=== PATIENT | female | born 1950 | race Caucasian/White ===

== ENCOUNTER 2019-04-09 17:07 | Emergency (ER) | payer BC, MEDICARE, SELFPAY ==
[2019-04-09 17:32] VITALS: BP 124/69; PULSE 75; RESP 16; TEMP 36.9; O2SAT 99; BMI 24.9
--- NOTE | 2019-04-09 17:51 | DI.CT.S_ITS ---
PROCEDURE: CT CERVICAL SPINE WO CON INDICATIONS: fall off mer TECHNIQUE: Noncontrast 3 mm thick sections acquired from the skull base to the T4 level. Sagittal and coronal reformats were then constructed. For radiation dose reduction, the following was used: automated exposure control, adjustment of mA and/or kV according to patient size. COMPARISON: None. FINDINGS: Image quality: Excellent. Bones: No fractures or dislocations. Multilevel cervical facet arthropathy. Bilateral bony foraminal narrowing at C4-C5 and C5-C6. Visualized superior ribs are intact. Soft tissues: Prevertebral soft tissues are normal in thickness. No paravertebral hematomas. No apical pneumothoraces. IMPRESSION: 1. No evidence acute cervical fracture or dislocation. 2. Cervical spondylosis. Dictated by: Kenyon Zafar M.D. on 04/09/2019 at 18:38 Approved by: Kenyon Zafar M.D. on 04/09/2019 at 18:43
--- NOTE | 2019-04-09 17:51 | DI.CT.S_ITS ---
PROCEDURE: CT CHEST ABD PEL W CON INDICATIONS: fall off mer, back pain TECHNIQUE: After the administration of intravenous contrast, 5 mm thick sections acquired from the lung apices to the symphysis. 2.5 mm thick coronal and sagittal reformats were acquired. Additional 7 mm thick coronal maximum intensity projection (MIP) reformats acquired through the lungs. Optional 10-minute delayed imaging may be performed from the kidneys to the bladder. For radiation dose reduction, the following was used: automated exposure control, adjustment of mA and/or kV according to patient size. COMPARISON: None. FINDINGS: Image quality: Excellent. CHEST: Lungs: No pulmonary contusions or lacerations. No acute airspace opacities. No pneumothorax or hemothorax. Central and peripheral airways appear patent and normal in caliber. Mediastinum: No mediastinal hematomas. Heart size is normal. No pericardial effusion. Thoracic aorta and pulmonary arteries demonstrate normal size and enhancement. No mediastinal or hilar adenopathy. Esophagus is normal in caliber. No hiatal hernia. Chest wall: No rib fractures. No subcutaneous emphysema. No axillary or supraclavicular adenopathy. Thyroid gland is unremarkable. ABDOMEN: Solid organs: Liver is normal in size and enhancement, without lacerations. Gallbladder is unremarkable. Biliary system is non-dilated. Pancreas enhances normally, without transection. Spleen is normal in size and enhancement, without lacerations. No adrenal hematomas. Both kidneys enhance normally, without hydronephrosis or lacerations. Peritoneum and bowel: No free fluid or air. Unenhanced bowel loops demonstrate normal wall thickness and caliber. Nodes and vessels: No retroperitoneal or mesenteric adenopathy. Aorta and inferior vena cava are normal in size and enhancement. Miscellaneous: No ventral hernias. PELVIS: Genitourinary: Bladder wall thickness is normal. Miscellaneous: No inguinal hernias or adenopathy. Bones: Mild acute superior endplate compression fractures of L1 and L2. Mild chronic compression fractures of T4-T12. IMPRESSION: 1. Mild acute superior endplate compression fractures of L1 and L2. 2. Mild old compression fractures of T4 [id number] vertebral bodies. 3. No other significant sequelae of acute trauma involving the chest, abdomen, and pelvis. Dictated by: Kenyon Zafar M.D. on 04/09/2019 at 18:44 Approved by: Kenyon Zafar M.D. on 04/09/2019 at 18:51
--- NOTE | 2019-04-09 17:51 | DI.CT.S_ITS ---
PROCEDURE: CT HEAD/BRAIN WO CON INDICATIONS: fall off mer TECHNIQUE: Noncontrast 4.5 mm thick angled axial sections acquired from the foramen magnum to the vertex, with coronal and sagittal reformats. For radiation dose reduction, the following was used: automated exposure control, adjustment of mA and/or kV according to patient size. COMPARISON: None. FINDINGS: Image quality: Excellent. CSF spaces: Basal cisterns are patent. No extra-axial fluid collections. Ventricles are normal in size and shape. Brain: No midline shift. No intracranial masses or hemorrhage. Moore-white matter interface is normal. Skull and face: Calvarium and visualized facial bones are intact, without suspicious lesions. Sinuses: Visualized sinuses and mastoids are clear. IMPRESSION: Negative for acute stroke, hemorrhage, or mass. No evidence of significant intracranial sequelae of acute trauma. Dictated by: Kenyon Zafar M.D. on 04/09/2019 at 18:36 Approved by: Kenyon Zafar M.D. on 04/09/2019 at 18:37
[2019-04-09 18:06] LABS: Add Manual Diff / Slide Review NO; Basophils Absolute Auto 0 /uL (0-100); Basophils Percent Auto 0.4 % (0-2); Eosinophils Absolute Auto 0 /uL (0-450); Eosinophils Percent Auto 0.2 % (2-4); Hematocrit 41.5 % (36-46); Hemoglobin 14.2 g/dL (12.0-16.0); Lymphocytes Absolute Auto 900 /uL (1100-4500); Lymphocytes Percent Auto 9.5 % (25-40); Mean Corpuscular HGB Conc 34.3 % (30-36); Mean Corpuscular Hemoglobin 30.3 PG (26-34); Mean Corpuscular Volume 88.3 fL (80-100); Monocytes Absolute Auto 600 /uL (0-900); Monocytes Percent Auto 5.7 % (3-14); Neutrophils Absolute Auto 8400 /uL (1500-7000); Neutrophils Percent Auto 84.2 % (50-75); Platelet Count 235 X10^3/uL (150-400); Red Blood Cell Count 4.69 X10^6/uL (4.0-5.2); Red Cell Distribution Width 13.2 % (11.6-14.8)
[2019-04-09 18:17] LABS: Alanine Aminotransferase 34 IU/L (<35); Albumin 4.2 g/dL (3.5-5.0); Albumin Globulin Ratio 1.4 (1.0-2.8); Alkaline Phosphatase 79 U/L (38-126); Aspartate Aminotransferase 51 IU/L (14-36); BUN Creatinine Ratio 26.3 (6-22); Bilirubin Total 0.4 mg/dL (0.2-1.3); Blood Urea Nitrogen 21 mg/dL (7-17); Calcium 9.2 mg/dL (8.4-10.2); Carbon Dioxide 27 mmol/L (22-32); Chloride 102 mmol/L (98-107); Estimated Glomerular Filt Rate > 60.0 mL/min (>60); Globulin 3.1 g/dL (1.7-4.1); Glucose 124 mg/dL (80-110); HEMOLYSIS 18 (0-50); Lipase 283 U/L (23-300); Potassium 3.9 mmol/L (3.4-5.1); Sodium 136 mmol/L (137-145); Total Protein 7.3 g/dL (6.3-8.2)
--- NOTE | 2019-04-09 18:42 | ED.GENADULT ---
HPI - General Adult General Chief complaint: Trauma Stated complaint: fall to her back from about 6ft Time Seen by Provider: 04/09/19 17:43 Source: patient Mode of arrival: Wheelchair Limitations: no limitations History of Present Illness HPI narrative: Patient is a 68-year-old female. Otherwise healthy here for evaluation of injuries that she sustained several hours prior to arrival here in the emergency department. Patient states she was walking [place] trail [place]. She was walking her dog. She states there was a 6 ft wall between her and the beach/water. She states that her dog got too close to the edge and fell off of the wall. She states that because she was holding on to the lesion pulled her off. She states that she fell landing on her back. She stated that she did not hit her head. There was no loss of consciousness. Stated that she felt sick immediately afterwards and felt like she was going to throw up. Had to lay on the ground for a period of time. She states the dog was not injured. She was able to locate her phone after a period of time and contacted her who came and found her and helped her up. Had a very difficult time walking afterwards. Took some Aleve which did not improvement in her symptoms so came into the emergency department for evaluation. This is a modified trauma given the mechanism Related Data Previous Rx's Medication Instructions Recorded hydrocodone-acetaminophen [[place]] 1 tab PO Q4-6H PRN #10 tab 04/09/19 Review of Systems Constitutional Constitutional: Denies frequent falls and Denies headache(s) Eyes Eyes: Denies diplopia ENT Ears, Nose, Mouth, and Throat: Denies vertigo, Denies dizziness, Denies headache(s) and Denies disequilibrium Cardiovascular Cardiovascular: Denies chest pain, Denies palpitations and Denies dyspnea Respiratory Respiratory: Denies dyspnea Gastrointestinal Gastrointestinal: Denies abdominal pain, Reports nausea and Denies vomiting Genitourinary Genitourinary: Denies dysuria Musculoskeletal Musculoskeletal: Denies tingling Comments: Lower back pain, left hand pain Integumentary/Breasts Comments: Bruising to the tip of her left ring and middle fingers Neurologic Neurologic: Denies vertigo, Denies dizziness, Denies frequent falls, Denies headache(s), Denies tingling, Denies paresthesias and Denies disequilibrium Endocrine Endocrine: Denies palpitations Hematologic/Lymphatic Hematologic/Lymphatic: Denies easy bleeding and Denies easy bruising Patient History Medical History Healthy adult (Acute) Social History marital status: lives independently: Yes Exam Initial Vital Signs Initial Vital Signs: Vital Signs Temperature 98.5 F 04/09/19 17:32 Pulse Rate 75 04/09/19 17:32 Respiratory Rate 16 04/09/19 17:32 Blood Pressure 124/69 04/09/19 17:32 Pulse Oximetry 99 04/09/19 17:32 Const General: cooperative, comfortable and well developed Orientation: alert, awake and oriented x3 HENMT Head: normal to inspection and normocephalic Nose: external nose normal Face and sinus: normal facial exam Chest Chest: normal inspection of the chest, No crepitus and No tenderness Resp Effort & Inspection: normal respiratory effort Auscultation: clear to auscultation bilaterally Cardio Rate: regular rate Rhythm: regular rhythm GI Inspection: non-distended Palpation: soft, No firm and No tender Back/Spine/Pelvis Cervical Spine: collar present and No cervical spinal tenderness Thoracic/Lumbar Spine: paraspinal tenderness (Upper lumbar) and No thoracic spinal tenderness Skin Other: Patient with bruising to the very tip of her left ring and middle finger. The distal portion of the nail with her left middle finger is bent backwards. There is no active bleeding. Neuro General: alert, awake and oriented x3 Cognition: normal cognition Speech: speech normal Motor: muscle tone normal throughout Sensory Exam: no sensory deficits noted Extrem General: normal to inspection and capillary refill normal Other: Shoulders elbows wrists hips knees ankles all unremarkable Psych Appearance: grossly normal and well kempt Scores GCS L[place]un coma scale eye opening: Spontaneous Mobile coma scale verbal response: Orientated [place] coma scale motor response: Obey commands [place] coma scale total score: 15 Nexus Score for C-Spine Focal Neurologic deficit present: No Midline spinal tenderness present: No Altered level of conciousness present: No Intoxication present: No Distracting Injury Present: No Nexus Criteria for C-spine: 0 Course Orders Ordered: ED Orders 04/09/19 17:51 CT cervical spine wo con Stat CT chest abd pel w con Stat CT head/brain wo con Stat 04/09/19 17:57 Complete Blood Count AUTO DIFF Stat Comprehensive Metabolic Panel Stat Lipase Stat Discontinued Medications Hydrocodone Bitart/Acetaminophen ([place] 5/325) 1 tab PO NOW ONE Stop: 04/09/19 19:43 Last Admin: 04/09/19 19:48 Dose: 1 tab Documented by: KIKE Hydrocodone Bitart/Acetaminophen (Vicodin Prepack) 1 bottle MISC SEEINSTR ONE Stop: 04/09/19 19:43 Last Admin: 04/09/19 19:48 Dose: 1 bottle Documented by: KIKE Vital Signs Vital signs: Vital Signs - 8 hr 04/09/19 17:32 04/09/19 19:35 Temperature 98.5 F Pulse Rate 75 73 Respiratory Rate 16 Blood Pressure 124/69 Blood Pressure [Left Arm] 114/63 Pulse Oximetry 99 98 Medical Decision Making Lab Data Lab results reviewed: Yes I reviewed the patient's lab results. Result diagrams: 04/09/19 17:57 04/09/19 17:57 Labs: Lab Results 04/09/19 04/09/19 Range/Units 17:57 17:57 WBC 10.0 (4.5-11.0) X10^3/uL RBC 4.69 (4.0-5.2) X10^6/uL Hgb 14.2 (12.0-16.0) g/dL Hct 41.5 (36-46) % MCV 88.3 (80-100) fL MCH 30.3 (26-34) PG MCHC 34.3 (30-36) % RDW 13.2 (11.6-14.8) % Plt Count 235 (150-400) X10^3/uL Neut % (Auto) 84.2 H (50-75) % Lymph % (Auto) 9.5 L (25-40) % Forrest % (Auto) 5.7 (3-14) % Eos % (Auto) 0.2 L (2-4) % Baso % (Auto) 0.4 (0-2) % Neut # (Auto) 8400 H (9058-8078) /uL Lymph # (Auto) 900 L (0964-8514) /uL Forrest # (Auto) 600 (0-900) /uL Eos # (Auto) 0 (0-450) /uL Baso # (Auto) 0 (0-100) /uL Sodium 136 L (137-145) mmol/L Potassium 3.9 (3.4-5.1) mmol/L Chloride 102 (98-107) mmol/L Carbon Dioxide 27 (22-32) mmol/L BUN 21 H (7-17) mg/dL Creatinine 0.80 (0.52-1.04) mg/dL Estimated GFR > 60.0 (>60) mL/min BUN/Creatinine Ratio 26.3 H (6-22) Glucose 124 H (80-110) mg/dL Calcium 9.2 (8.4-10.2) mg/dL Total Bilirubin 0.4 (0.2-1.3) mg/dL AST 51 H (14-36) IU/L ALT 34 (<35) IU/L Alkaline Phosphatase 79 (38-126) U/L Total Protein 7.3 (6.3-8.2) g/dL Albumin 4.2 (3.5-5.0) g/dL Globulin 3.1 (1.7-4.1) g/dL Albumin/Globulin Ratio 1.4 (1.0-2.8) Lipase 283 (23-300) U/L Imaging Data CT scan - head: Radiologist's impression: [place] [address] CT Scan Report Signed Patient: Rayne Capps TMR#: [id number] : 3Acct:[id number] Age/Sex: 68 / FDate of Service: 04/09/19 Loc: ED Accession Number: [id number] Procedure: CT head/brain wo con Ordering Provider: Nakia Skelton D.O. PROCEDURE: CT HEAD/BRAIN WO CON INDICATIONS: fall off mer TECHNIQUE: Noncontrast 4.5 mm thick angled axial sections acquired from the foramen magnum to the vertex, with coronal and sagittal reformats. For radiation dose reduction, the following was used: automated exposure control, adjustment of mA and/or kV according to patient size. COMPARISON: None. FINDINGS: Image quality: Excellent. CSF spaces: Basal cisterns are patent. No extra-axial fluid collections. Ventricles are normal in size and shape. Brain: No midline shift. No intracranial masses or hemorrhage. Moore-white matter interface is normal. Skull and face: Calvarium and visualized facial bones are intact, without suspicious lesions. Sinuses: Visualized sinuses and mastoids are clear. IMPRESSION: Negative for acute stroke, hemorrhage, or mass. No evidence of significant intracranial sequelae of acute trauma. Dictated by: Kenyon Zafar M.D. on 04/09/2019 at 18:36 Approved by: Kenyon Zafar M.D. on 04/09/2019 at 18:37 CT cervical spine: Radiologist's impression: [place] [address] CT Scan Report Signed Patient: Rayne Capps TMR#: [id number] : 1950cct:[id number] Age/Sex: 68 / FDate of Service: 04/09/19 Loc: ED Accession Number: [id number] Procedure: CT cervical spine wo con Ordering Provider: Nakia Skelton D.O. PROCEDURE: CT CERVICAL SPINE WO CON INDICATIONS: fall off mer TECHNIQUE: Noncontrast 3 mm thick sections acquired from the skull base to the T4 level. Sagittal and coronal reformats were then constructed. For radiation dose reduction, the following was used: automated exposure control, adjustment of mA and/or kV according to patient size. COMPARISON: None. FINDINGS: Image quality: Excellent. Bones: No fractures or dislocations. Multilevel cervical facet arthropathy. Bilateral bony foraminal narrowing at C4-C5 and C5-C6. Visualized superior ribs are intact. Soft tissues: Prevertebral soft tissues are normal in thickness. No paravertebral hematomas. No apical pneumothoraces. IMPRESSION: 1. No evidence acute cervical fracture or dislocation. 2. Cervical spondylosis. Dictated by: Kenyon Zafar M.D. on 04/09/2019 at 18:38 Approved by: Kenyon Zafar M.D. on 04/09/2019 at 18:43 CT chest abd/pelvis: Radiologist's impression: [place] [id number] CT Scan Report Signed Patient: Rayne Capps TMR#: [id number] : 1950cct:[id number] Age/Sex: 68 / FDate of Service: 04/09/19 Loc: ED Accession Number: [id number] Procedure: CT chest abd pel w con Ordering Provider: Nakia Skelton D.O. PROCEDURE: CT CHEST ABD PEL W CON INDICATIONS: fall off mer, back pain TECHNIQUE: After the administration of intravenous contrast, 5 mm thick sections acquired from the lung apices to the symphysis. 2.5 mm thick coronal and sagittal reformats were acquired. Additional 7 mm thick coronal maximum intensity projection (MIP) reformats acquired through the lungs. Optional 10-minute delayed imaging may be performed from the kidneys to the bladder. For radiation dose reduction, the following was used: automated exposure control, adjustment of mA and/or kV according to patient size. COMPARISON: None. FINDINGS: Image quality: Excellent. CHEST: Lungs: No pulmonary contusions or lacerations. No acute airspace opacities. No pneumothorax or hemothorax. Central and peripheral airways appear patent and normal in caliber. Mediastinum: No mediastinal hematomas. Heart size is normal. No pericardial effusion. Thoracic aorta and pulmonary arteries demonstrate normal size and enhancement. No mediastinal or hilar adenopathy. Esophagus is normal in caliber. No hiatal hernia. Chest wall: No rib fractures. No subcutaneous emphysema. No axillary or supraclavicular adenopathy. Thyroid gland is unremarkable. ABDOMEN: Solid organs: Liver is normal in size and enhancement, without lacerations. Gallbladder is unremarkable. Biliary system is non-dilated. Pancreas enhances normally, without transection. Spleen is normal in size and enhancement, without lacerations. No adrenal hematomas. Both kidneys enhance normally, without hydronephrosis or lacerations. Peritoneum and bowel: No free fluid or air. Unenhanced bowel loops demonstrate normal wall thickness and caliber. Nodes and vessels: No retroperitoneal or mesenteric adenopathy. Aorta and inferior vena cava are normal in size and enhancement. Miscellaneous: No ventral hernias. PELVIS: Genitourinary: Bladder wall thickness is normal. Miscellaneous: No inguinal hernias or adenopathy. Bones: Mild acute superior endplate compression fractures of L1 and L2. Mild chronic compression fractures of T4-T12. IMPRESSION: 1. Mild acute superior endplate compression fractures of L1 and L2. 2. Mild old compression fractures of T4 [id number] vertebral bodies. 3. No other significant sequelae of acute trauma involving the chest, abdomen, and pelvis. Dictated by: Kenyon Zafar M.D. on 04/09/2019 at 18:44 Approved by: Kenyon Zafar M.D. on 04/09/2019 at 18:51 MDM Narrative Medical decision making narrative: Patient was placed in a cervical collar upon arrival. Head neck and chest abdomen pelvis CTs were obtained. It does appear to be a new superior endplate fractures of L1 and L2. Patient is not specifically tender directly over this area midline in her lumbar spine but does have some paraspinal tenderness. There are no other injuries noted on the CT scans. The cervical collar was removed. Patient is alert oriented x3. She does have bruising to the tips of her left ring and middle finger. She is able to bend it all of the joints to include the PIP joints. We did discuss the potential of a fracture in these areas however the patient declined an x-ray. The nail of her left middle finger is bent backwards. This is only the distal 3rd of the nail. I did offer to numb her finger and trim this back however the patient declined. She stated that she would just wait for to heal on its own. Initially patient declined any pain medication. She did ambulate to the bathroom however upon standing from the toilet did have some significant pain in her lower back. Eventually she did accept oral pain medications. Patient feels like she could go home. Her is with her. She was given pain medication for home. She was given return precautions. Informed to contact her primary provider for follow-up. She expressed understanding and agreement with plan. Discharge Plan Departure Patient Disposition: Home Clinical Impression: Closed L1 vertebral fracture Qualifiers: Encounter type: initial encounter Fracture morphology: unspecified fracture morphology Qualified Code(s): S32.019A - Unspecified fracture of first lumbar vertebra, initial encounter for closed fracture Closed L2 vertebral fracture Qualifiers: Encounter type: initial encounter Fracture morphology: unspecified fracture morphology Qualified Code(s): S32.029A - Unspecified fracture of second lumbar vertebra, initial encounter for closed fracture Contusion of left ring finger Qualifiers: Encounter type: initial encounter Damage to nail status: without damage Qualified Code(s): S60.042A - Contusion of left ring finger without damage to nail, initial encounter Contusion of left middle finger Qualifiers: Encounter type: initial encounter Damage to nail status: with damage Qualified Code(s): S60.132A - Contusion of left middle finger with damage to nail, initial encounter Fall Qualifiers: Encounter type: initial encounter Qualified Code(s): W19.XXXA - Unspecified fall, initial encounter Discharge Date/Time: 04/09/19 20:00 Instructions: Vertebral Compression Fracture Activity Restrictions/Additional Instructions: Take the pain medication as directed. I also recommend that you take [id number] ibuprofen. You could do 600 mg every 8 hours. On Thursday contact your primary provider for a follow-up. Return to the emergency department for any new or worsening symptoms Prescriptions: New hydrocodone-acetaminophen [[place]] 5-325 mg tablet 1 tab PO Q4-6H PRN (Reason: pain) Qty: 10 RF: 0
--- NOTE | 2019-04-09 19:25 | PC.NURSE ---
Assisted patient is standing and walking to the bathroom. Patient was able to walk to the bathroom. Patients pain came back when she got off the toilet. States the pain feels the same as when she first came in now.
[2019-04-09 19:35] VITALS: BP 114/63; PULSE 73; O2SAT 98
[2019-04-09] MEDS: HYDROCODONE/ACET 5/325 PREPACK 1 BOTTLE MISC (19:48)
[2019-04-09] MEDS: HYDROCODONE/ACET 5/325 TABLET 1 TAB PO (19:48)
== END 2019-04-09 20:00 | disposition home or self-care (01) ==
PROVIDERS: Emergency Medicine; Emergency Provider Emergency Medicine
DX: S32.019A Unspecified fracture of first lumbar vertebra, initial encounter for closed fracture (principal); S32.029A Unspecified fracture of second lumbar vertebra, initial encounter for closed fracture; S60.132A Contusion of left middle finger with damage to nail, initial encounter; W17.89XA Other fall from one level to another, initial encounter
CPT/HCPCS: 36415; 70450; 71260; 72125; 74177; 80053; 83690; 85025; 99282; 99284; Q9967